=== PATIENT | male | born 1970 | race Caucasian/White ===

== ENCOUNTER 2016-09-05 21:58 | Emergency (ER) | payer MEDICARE ==
[~2016-09-05] VITALS: Ht 185.4 cm; Wt 99.8 kg
[2016-09-05 21:58] VITALS: BP 112/76
[~2016-09-05 21:58] MED LIST: BENICAR5 MG PO; DAYPRO600 M1 PO; DICLOFENAC POTA50 MG PO; GEODON60 MG PO; GLUCOPHAGE500 MG PO; INVOKANA300 M1 PO; LIPITOR40 MG PO; METFORMIN500 MG PO; MICRONASE5 MG PO; NEURONTIN100 MG PO; PREDNISONE10 MG PO; SEROQUEL XR400 MG PO; Synthroid,Lev200 MCG PO; TRAD5TAB1 PO; TRIGLIDE160 MG PO; ULTRAM50 MG PO
[2016-09-05 22:21] LABS: BASO # 0.1 10*3/uL (0.0-0.1); BASO % 1.3 % (0.0-1.0); EOS # 0.2 10*3/uL (0.0-0.4); EOS % 3.1 % (1.0-4.0); HEMATOCRIT 40.1 % (42.0-52.0); HEMOGLOBIN 13.9 g/dl (14.0-18.0); IG # 0.1 10*3/uL (0.0-0.1); LYMPH # 2.4 10*3/uL (1.3-4.4); MEAN CELL VOLUME 79.9 fl (80.0-94.0); MEAN CORPUSCULAR HGB 27.7 pg (27.0-31.0); MEAN CORPUSCULAR HGB CONC 34.7 g/dl (33.0-37.0); MEAN PLATELET VOLUME 10.4 fl (9.6-12.3); MONO # 0.5 10*3/uL (0.1-1.0); MONO % 6.8 % (3.0-9.0); NEUT # 3.8 10*3/uL (2.3-7.9); NEUT % 54.1 % (47.0-73.0); PLATELET COUNT AUTOMATED 343 10*3/uL (130-400); RED BLOOD COUNT 5.02 10*6/uL (4.50-5.90); RED CELL DISTRI WIDTH 13.6 % (0-14.5); WHITE BLOOD COUNT 7.1 10*3/uL (4.8-10.8)
[2016-09-05 22:38] LABS: ALBUMIN 3.4 gm/dl (3.1-4.5); ALKALINE PHOSPHATASE 105 U/L (45-117); BILIRUBIN, TOTAL 0.2 mg/dl (0.2-1.0); BUN 15 mg/dl (7-24); CARBON DIOXIDE 27 mmol/L (21-32); CHLORIDE 92 mmol/L (98-107); EST GLOM FILT AFRICAN AMERICAN > 60 ml/min; MAGNESIUM 2.5 mg/dL (1.5-2.1); POTASSIUM 4.4 mmol/L (3.5-5.1); SGOT/AST 8 IU/L (3-35); SGPT/ALT 22 U/L (12-78); SODIUM 130 mmol/L (136-145); TOTAL PROTEIN 7.1 gm/dL (6.4-8.2)
[2016-09-05 22:39] LABS: TROPONIN I < 0.015 ng/ml (<0.045)
[2016-09-05 22:40] LABS: GLUCOSE 687 mg/dL (65-99)
[2016-09-05 22:41] LABS: HEMOGLOBIN A1c 14.1 % (4.8-5.6)
[2016-09-05] MEDS ORDERED: LANOXIN250 MCG PO (23:17)
[2016-09-05] MEDS ORDERED: ALDACTONE25 MG PO (23:18)
[2016-09-05] MEDS ORDERED: ENTRESTO 97 MG1 EACH PO (23:18)
[2016-09-05] MEDS ORDERED: LASIX20 MG PO (23:18)
[2016-09-05] MEDS ORDERED: ASPIRIN81 M1 PO (23:19)
[2016-09-05] MEDS ORDERED: LISINOPRIL5 MG PO (23:19)
[2016-09-05] MEDS ORDERED: CORLANOR5 MG PO (23:20)
[2016-09-05] MEDS ORDERED: FENOFIBRATE160 MG PO (23:20)
[2016-09-05] MEDS ORDERED: BRILINTA90 M1 PO (23:21)
[2016-09-05] MEDS ORDERED: TOPROL XL200 MG PO (23:22)
[2016-09-05] MEDS ORDERED: ATORVASTATIN CA40 M1 PO (23:23)
[2016-09-06 00:10] LABS: BILIRUBIN NEGATIVE (NEGATIVE); BLOOD NEGATIVE (NEGATIVE); CLARITY CLEAR (CLEAR); COLOR YELLOW (YELLOW); GLUCOSE 3+ (NEGATIVE); KETONE NEGATIVE (NEGATIVE); LEUKO ESTERASE NEGATIVE (NEGATIVE); NITRITE NEGATIVE (NEGATIVE); PROTEIN NEGATIVE (NEGATIVE); SPECIFIC GRAVITY <= 1.005 (1.005-1.030); UROBILINOGEN 0.2 E.U./dl (0.2-1.0)
[2016-09-06 00:19] LABS: LA>2 REFLEX 2 HR DRAW NOW
[2016-09-06 00:21] LABS: URINE AMPHETAMINES < 1000 (1000ng/ml); URINE BARBITURATES < 200 (200ng/ml); URINE COCAINE < 300 (300ng/ml)
[2016-09-06 00:24] LABS: BACTERIA TRACE; EPITHELIAL CELLS 0-2; URINE REFLEX COMMENT NO (NO); WBC 0-2 wbc/hpf (0-5)
[2016-09-06 00:39] LABS: LA>2 RFLX FOLLOW UP AT 2 HRS 2.5 mmol/L (0.4-2.0)
[2016-09-06 02:29] LABS: LA>2 REFLEX 4 HR DRAW NOW
[2016-09-06 02:35] LABS: BUN 12 mg/dl (7-24); CARBON DIOXIDE 27 mmol/L (21-32); CHLORIDE 101 mmol/L (98-107); EST GLOM FILT AFRICAN AMERICAN > 60 ml/min; GLUCOSE 366 mg/dL (65-99); POTASSIUM 3.9 mmol/L (3.5-5.1); SODIUM 135 mmol/L (136-145)
== END 2016-09-06 03:38 | disposition home or self-care (01) ==
LOC: ED 21:58
PROVIDERS: Emergency Medicine Emergency Medical Services
DX: R73.9 Hyperglycemia, unspecified (principal); E11.8 Type 2 diabetes mellitus with unspecified complications; I99.8 Other disorder of circulatory system; Z79.82 Long term (current) use of aspirin; Z79.899 Other long term (current) drug therapy; Z88.0 Allergy status to penicillin; Z88.1 Allergy status to other antibiotic agents; Z88.6 Allergy status to analgesic agent

== ENCOUNTER 2016-09-25 16:26 | Inpatient (IN) | payer MEDICARE ==
[~2016-09-25] VITALS: Ht 180.3 cm; Wt 103.9 kg
--- NOTE | ~2016-09-25 | EKG ---
[place], [place] ELECTROCARDIOGRAM REPORT NAME: SIMA ALICIA UNIT #: [id number] ROOM: [facility] DOCTOR: GABE DONIS MD BIRTHDATE: [birth year] DOS: 09/25/2016 TIME: 17:50 p.m. FINDINGS: Sinus rhythm at rate of 81. Low voltage in limb leads. Anterolateral infarction, age undetermined. Abnormal electrocardiogram. GABE DONIS MD CM:EKGRPT:ELECTROCARDIOGRAM REPORT [id number] GABE DONIS MD
--- NOTE | ~2016-09-25 | WRIGHTHP ---
[place], [place] PATIENT HISTORY AND PHYSICAL EXAM NAME: SIMA ALICIA [facility] #: [id number] UNIT #: [id number] ROOM: 502 DOCTOR: CARLOS ALBERTO RON DO BIRTHDATE: [birth year] DOS: 09/25/2016 PRIMARY CARE PHYSICIAN: Dr. Yolette [place]. The patient was seen and evaluated with the resident on 09/25/2016. Please see the resident's note for further details. ASSESSMENT: 1. Uncontrolled diabetes mellitus type 2 and currently with severe hyperglycemia. 2. Noncompliance with insulin over the last 3 months. 3. Chronic systolic heart failure, currently compensated. Last echocardiogram in January of 2016 measured an ejection fraction of 30% to 35%. 4. Coronary artery disease with history of ST elevation myocardial infarction in October of 2015, where he had a cardiac catheterization and a stent placed. 5. Hypertension. 6. Hyperlipidemia. 7. Tobacco abuse. 8. Diabetic neuropathy. 9. Bipolar disorder. 10. Hypothyroidism. 11. History of automatic implantable cardioverter-defibrillator placement in February of 2016. 12. History of depression. PLAN: Stat labs will be obtained. EKG and chest x-ray will be ordered and insulin sliding scale will be ordered initially and this will be adjusted as needed based on the laboratory results. Continue other home medications. CARLOS ALBERTO RON DO CM:HISPHYS:PATIENT HISTORY AND PHYSICAL EXAMINATION 1720 1739 CARLOS ALBERTO RON DO 09/25/16 1740 interface
[~2016-09-25 16:26] MED LIST changes: +ALDACTONE25 MG PO; +ASPIRIN81 M1 PO; +ATORVASTATIN CA40 M1 PO; +BRILINTA90 M1 PO; +CORLANOR5 MG PO; +ENTRESTO 97 MG1 EACH PO; +FENOFIBRATE160 MG PO; +LANOXIN250 MCG PO; +LASIX20 MG PO; +LISINOPRIL5 MG PO; +TOPROL XL200 MG PO
[2016-09-25 17:04] VITALS: BP 111/64
[2016-09-25] MEDS ORDERED: BYDUREON2 M1 SQ (17:14)
[2016-09-25 17:15] LABS: BASO # 0.1 10*3/uL (0.0-0.1); BASO % 0.9 % (0.0-1.0); EOS # 0.2 10*3/uL (0.0-0.4); EOS % 2.2 % (1.0-4.0); HEMATOCRIT 43.1 % (42.0-52.0); HEMOGLOBIN 15.2 g/dl (14.0-18.0); IG # 0.1 10*3/uL (0.0-0.1); LYMPH # 2.7 10*3/uL (1.3-4.4); LYMPH % 29.4 % (27.0-41.0); MEAN CELL VOLUME 79.5 fl (80.0-94.0); MEAN CORPUSCULAR HGB CONC 35.3 g/dl (33.0-37.0); MEAN PLATELET VOLUME 10.5 fl (9.6-12.3); MONO # 0.4 10*3/uL (0.1-1.0); MONO % 4.7 % (3.0-9.0); NEUT # 5.7 10*3/uL (2.3-7.9); NEUT % 62.2 % (47.0-73.0); PLATELET COUNT AUTOMATED 324 10*3/uL (130-400); RED BLOOD COUNT 5.42 10*6/uL (4.50-5.90); RED CELL DISTRI WIDTH 13.5 % (0-14.5); WHITE BLOOD COUNT 9.1 10*3/uL (4.8-10.8)
[2016-09-25 17:24] LABS: INTERNATIONAL NORM RATIO 0.9 (2.0-3.5)
[2016-09-25 17:32] LABS: ALBUMIN 4.1 gm/dl (3.1-4.5); BILIRUBIN, TOTAL 0.6 mg/dl (0.2-1.0); BUN 20 mg/dl (7-24); CARBON DIOXIDE 26 mmol/L (21-32); CHLORIDE 91 mmol/L (98-107); CHOLESTEROL 192 mg/dL (<200); EST GLOM FILT AFRICAN AMERICAN > 60 ml/min; HDL CHOLESTEROL 20 mg/dl (40-60); MAGNESIUM 2.4 mg/dL (1.5-2.1); POTASSIUM 4.2 mmol/L (3.5-5.1); SGOT/AST 16 IU/L (3-35); SGPT/ALT 22 U/L (12-78); SODIUM 131 mmol/L (136-145); TOTAL PROTEIN 7.9 gm/dL (6.4-8.2)
[2016-09-25 17:33] LABS: ALKALINE PHOSPHATASE 116 U/L (45-117)
[2016-09-25 17:40] LABS: FREE T4 1.21 ng/dl (0.76-1.46)
[2016-09-25 17:46] LABS: GLUCOSE 488 mg/dL (65-99); TRIGLYCERIDES 1104 mg/dl (<150)
[2016-09-25 18:35] LABS: FOLIC ACID 16.8 ng/mL (>5.38)
[2016-09-25] MEDS ORDERED: NEURONTIN400 MG PO (18:44)
[2016-09-25] MEDS ORDERED: NEURONTIN800 MG PO (18:44)
[2016-09-25 20:00] VITALS: BP 103/61
[2016-09-26] VITALS: BP 87/57
[2016-09-26 07:13] LABS: BASO # 0.1 10*3/uL (0.0-0.1); BASO % 0.9 % (0.0-1.0); EOS # 0.3 10*3/uL (0.0-0.4); EOS % 3.4 % (1.0-4.0); HEMATOCRIT 38.7 % (42.0-52.0); HEMOGLOBIN 13.3 g/dl (14.0-18.0); IG # 0.1 10*3/uL (0.0-0.1); LYMPH # 3.6 10*3/uL (1.3-4.4); LYMPH % 46.9 % (27.0-41.0); MEAN CELL VOLUME 80.6 fl (80.0-94.0); MEAN CORPUSCULAR HGB 27.7 pg (27.0-31.0); MEAN CORPUSCULAR HGB CONC 34.4 g/dl (33.0-37.0); MEAN PLATELET VOLUME 10.8 fl (9.6-12.3); MONO # 0.5 10*3/uL (0.1-1.0); MONO % 6.2 % (3.0-9.0); NEUT # 3.2 10*3/uL (2.3-7.9); NEUT % 41.8 % (47.0-73.0); PLATELET COUNT AUTOMATED 294 10*3/uL (130-400); RED CELL DISTRI WIDTH 13.5 % (0-14.5); WHITE BLOOD COUNT 7.6 10*3/uL (4.8-10.8)
[2016-09-26 07:39] LABS: ALBUMIN 3.2 gm/dl (3.1-4.5); BUN 18 mg/dl (7-24); CARBON DIOXIDE 28 mmol/L (21-32); CHLORIDE 99 mmol/L (98-107); GLUCOSE 275 mg/dL (65-99); POTASSIUM 3.4 mmol/L (3.5-5.1); SODIUM 133 mmol/L (136-145)
[2016-09-26 07:42] LABS: ALKALINE PHOSPHATASE 94 U/L (45-117); BILIRUBIN, TOTAL 0.3 mg/dl (0.2-1.0); EST GLOM FILT AFRICAN AMERICAN > 60 ml/min; SGOT/AST 14 IU/L (3-35); SGPT/ALT 21 U/L (12-78); TOTAL PROTEIN 6.6 gm/dL (6.4-8.2)
[2016-09-26 08:00] VITALS: BP 94/60
[2016-09-26] MEDS ORDERED: VITAMIN D50000 I3 PO (11:17)
[2016-09-26] MEDS ORDERED: LEVEMIR10 ML SC (11:17)
[2016-09-26] MEDS ORDERED: HUMALOG100 U/ML SC ×2 (11:17)
[2016-09-26 12:00] VITALS: BP 122/76
== END 2016-09-26 13:00 | disposition home health service (06) | DRG 638 ==
LOC: 5E 16:26
PROVIDERS: Emergency Medicine; Internal Medicine Hospice and Palliative Medicine
DX: E11.65 Type 2 diabetes mellitus with hyperglycemia (principal); I50.22 Chronic systolic (congestive) heart failure; I11.0 Hypertensive heart disease with heart failure; E11.40 Type 2 diabetes mellitus with diabetic neuropathy, unspecified; E87.1 Hypo-osmolality and hyponatremia; F31.60 Bipolar disorder, current episode mixed, unspecified; E83.41 Hypermagnesemia; I25.10 Atherosclerotic heart disease of native coronary artery without angina pectoris; F17.200 Nicotine dependence, unspecified, uncomplicated; E03.9 Hypothyroidism, unspecified; E78.2 Mixed hyperlipidemia; G47.00 Insomnia, unspecified; E66.09 Other obesity due to excess calories; Z95.810 Presence of automatic (implantable) cardiac defibrillator; Z95.5 Presence of coronary angioplasty implant and graft; Z82.61 Family history of arthritis; Z88.0 Allergy status to penicillin; Z79.4 Long term (current) use of insulin; Z88.1 Allergy status to other antibiotic agents; Z88.6 Allergy status to analgesic agent; Z91.19 Patient's noncompliance with other medical treatment and regimen; Z88.8 Allergy status to other drugs, medicaments and biological substances; Z79.82 Long term (current) use of aspirin; Z79.899 Other long term (current) drug therapy; Z68.32 Body mass index [BMI] 32.0-32.9, adult

== ENCOUNTER 2016-11-10 23:09 | Emergency (ER) | payer MEDICARE ==
[~2016-11-10] VITALS: Ht 180.3 cm; Wt 126.6 kg
[2016-11-10 23:09] VITALS: BP 138/80
[~2016-11-10 23:09] MED LIST changes: +BYDUREON2 M1 SQ; +HUMALOG100 U/ML SC; +LEVEMIR10 ML SC; +NEURONTIN400 MG PO; +NEURONTIN800 MG PO; +VITAMIN D50000 I3 PO
[2016-11-11 00:02] LABS: BASO # 0.1 10*3/uL (0.0-0.1); BASO % 1.5 % (0.0-1.0); EOS # 0.3 10*3/uL (0.0-0.4); EOS % 3.7 % (1.0-4.0); HEMATOCRIT 39.1 % (42.0-52.0); HEMOGLOBIN 13.3 g/dl (14.0-18.0); LYMPH # 3.2 10*3/uL (1.3-4.4); LYMPH % 39.2 % (27.0-41.0); MEAN CORPUSCULAR HGB 27.5 pg (27.0-31.0); MEAN PLATELET VOLUME 9.8 fl (9.6-12.3); MONO # 0.6 10*3/uL (0.1-1.0); MONO % 7.4 % (3.0-9.0); NEUT # 3.9 10*3/uL (2.3-7.9); NEUT % 47.8 % (47.0-73.0); PLATELET COUNT AUTOMATED 351 10*3/uL (130-400); RED BLOOD COUNT 4.83 10*6/uL (4.50-5.90); RED CELL DISTRI WIDTH 13.2 % (0-14.5); WHITE BLOOD COUNT 8.1 10*3/uL (4.8-10.8)
[2016-11-11 00:06] LABS: BUN 20 mg/dl (7-24); CARBON DIOXIDE 28 mmol/L (21-32); CHLORIDE 100 mmol/L (98-107); EST GLOM FILT AFRICAN AMERICAN > 60 ml/min; GLUCOSE 144 mg/dL (65-99); POTASSIUM 4.1 mmol/L (3.5-5.1); SODIUM 136 mmol/L (136-145)
[2016-11-11 00:27] LABS: BILIRUBIN NEGATIVE (NEGATIVE); BLOOD NEGATIVE (NEGATIVE); CLARITY CLEAR (CLEAR); COLOR YELLOW (YELLOW); GLUCOSE TRACE (NEGATIVE); KETONE NEGATIVE (NEGATIVE); LEUKO ESTERASE NEGATIVE (NEGATIVE); NITRITE NEGATIVE (NEGATIVE); PH 5.5 (5.0-9.0); PROTEIN NEGATIVE (NEGATIVE); SPECIFIC GRAVITY <= 1.005 (1.005-1.030); UROBILINOGEN 0.2 E.U./dl (0.2-1.0)
[2016-11-11 00:49] LABS: EPITHELIAL CELLS 0-5; URINE REFLEX COMMENT NO (NO); WBC 0-2 wbc/hpf (0-5)
[2016-11-11 00:59] LABS: URINE AMPHETAMINES < 1000 (1000ng/ml); URINE BARBITURATES < 200 (200ng/ml); URINE COCAINE < 300 (300ng/ml)
== END 2016-11-11 00:48 | disposition home or self-care (01) ==
LOC: ED 23:09
PROVIDERS: Emergency Medicine Emergency Medical Services
DX: G89.29 Other chronic pain (principal); M79.601 Pain in right arm; M79.602 Pain in left arm; M25.561 Pain in right knee; M25.562 Pain in left knee; G62.9 Polyneuropathy, unspecified; R20.2 Paresthesia of skin; R20.0 Anesthesia of skin; I25.10 Atherosclerotic heart disease of native coronary artery without angina pectoris; E03.9 Hypothyroidism, unspecified; E78.2 Mixed hyperlipidemia; E11.9 Type 2 diabetes mellitus without complications; E11.65 Type 2 diabetes mellitus with hyperglycemia; F17.200 Nicotine dependence, unspecified, uncomplicated; Z79.4 Long term (current) use of insulin; I25.2 Old myocardial infarction; I50.22 Chronic systolic (congestive) heart failure; Z88.0 Allergy status to penicillin; Z88.1 Allergy status to other antibiotic agents; Z88.6 Allergy status to analgesic agent; Z79.899 Other long term (current) drug therapy; Z79.82 Long term (current) use of aspirin

== ENCOUNTER 2016-12-13 12:39 | Emergency (ER) | payer MEDICARE ==
[~2016-12-13] VITALS: Wt 108.9 kg
[2016-12-13 12:44] VITALS: BP 125/73
[2016-12-13] MEDS ORDERED: PREDNISONE10 MG PO (14:07)
== END 2016-12-13 14:14 ==
LOC: ED 12:39
DX: G89.4 Chronic pain syndrome (principal); G62.9 Polyneuropathy, unspecified; F17.200 Nicotine dependence, unspecified, uncomplicated; Z95.5 Presence of coronary angioplasty implant and graft; Z95.810 Presence of automatic (implantable) cardiac defibrillator; Z79.4 Long term (current) use of insulin; Z79.82 Long term (current) use of aspirin; Z79.899 Other long term (current) drug therapy; Z88.0 Allergy status to penicillin; Z88.1 Allergy status to other antibiotic agents; Z88.6 Allergy status to analgesic agent

== ENCOUNTER 2017-02-02 18:08 | Emergency (ER) | payer MEDICARE ==
[~2017-02-02] VITALS: Ht 180.3 cm; Wt 109.3 kg
[2017-02-02 18:14] VITALS: BP 138/80
[2017-02-02] MEDS ORDERED: PREDNISONE10 MG PO (18:37)
[2017-02-02] MEDS ORDERED: ZOFRAN4 MG PO (18:37)
== END 2017-02-02 20:00 | disposition home or self-care (01) ==
LOC: ED 18:08
DX: G89.29 Other chronic pain (principal); R52 Pain, unspecified; E11.42 Type 2 diabetes mellitus with diabetic polyneuropathy; R03.0 Elevated blood-pressure reading, without diagnosis of hypertension; I25.10 Atherosclerotic heart disease of native coronary artery without angina pectoris; I25.2 Old myocardial infarction; E03.9 Hypothyroidism, unspecified; E78.2 Mixed hyperlipidemia; E11.65 Type 2 diabetes mellitus with hyperglycemia; I50.22 Chronic systolic (congestive) heart failure; F17.200 Nicotine dependence, unspecified, uncomplicated; Z88.0 Allergy status to penicillin; Z79.4 Long term (current) use of insulin; Z88.1 Allergy status to other antibiotic agents; Z88.6 Allergy status to analgesic agent; Z79.82 Long term (current) use of aspirin; Z79.899 Other long term (current) drug therapy

== ENCOUNTER 2017-04-22 16:44 | Emergency (ER) | payer MEDICARE ==
[~2017-04-22] VITALS: Ht 180.3 cm; Wt 103.9 kg
[~2017-04-22 16:44] MED LIST changes: +ZOFRAN4 MG PO
[2017-04-22 17:24] VITALS: BP 139/89
== END 2017-04-22 18:39 | disposition home or self-care (01) ==
LOC: ED 16:44
DX: S93.401A Sprain of unspecified ligament of right ankle, initial encounter (principal); F17.200 Nicotine dependence, unspecified, uncomplicated; Z98.890 Other specified postprocedural states; Z90.89 Acquired absence of other organs; Z95.5 Presence of coronary angioplasty implant and graft; Z79.82 Long term (current) use of aspirin; Z79.899 Other long term (current) drug therapy; Z79.4 Long term (current) use of insulin; Z88.1 Allergy status to other antibiotic agents; Z88.5 Allergy status to narcotic agent; Z88.8 Allergy status to other drugs, medicaments and biological substances; Z88.0 Allergy status to penicillin; Z88.6 Allergy status to analgesic agent; X50.1XXA Overexertion from prolonged static or awkward postures, initial encounter; Y93.89 Activity, other specified; Y92.89 Other specified places as the place of occurrence of the external cause; Y99.9 Unspecified external cause status

== ENCOUNTER → 2017-06-22 | Outpatient (CLI) | payer MEDICARE ==
[2017-06-22 12:36] LABS: BILIRUBIN NEGATIVE (NEGATIVE); BLOOD NEGATIVE (NEGATIVE); CLARITY CLEAR (CLEAR); COLOR STRAW (YELLOW); GLUCOSE 3+ (NEGATIVE); KETONE NEGATIVE (NEGATIVE); LEUKO ESTERASE NEGATIVE (NEGATIVE); NITRITE NEGATIVE (NEGATIVE); PH 5.5 (5.0-9.0); SPECIFIC GRAVITY <= 1.005 (1.005-1.030); UROBILINOGEN 0.2 E.U./dl (0.2-1.0)
[2017-06-22 13:06] LABS: ALBUMIN 3.9 gm/dl (3.1-4.5); ALKALINE PHOSPHATASE 135 U/L (45-117); BILIRUBIN, DIRECT < 0.1 mg/dL (0.0-0.2); BUN 17 mg/dl (7-24); CHLORIDE 89 mmol/L (98-107); CHOLESTEROL 136 mg/dL (<200); CREATININE 1.12 mg/dL (0.70-1.30); FREE T4 1.26 ng/dl (0.76-1.46); HDL CHOLESTEROL 23 mg/dl (40-60); POTASSIUM 3.7 mmol/L (3.5-5.1); SGOT/AST 11 IU/L (3-35); SGPT/ALT 27 U/L (12-78); SODIUM 129 mmol/L (136-145); TOTAL PROTEIN 7.5 gm/dL (6.4-8.2); TRIGLYCERIDES 682 mg/dl (<150)
== END | disposition home or self-care (01) ==
LOC: LAB 11:49
PROVIDERS: Internal Medicine
DX: E11.65 Type 2 diabetes mellitus with hyperglycemia (principal); E03.9 Hypothyroidism, unspecified; E78.5 Hyperlipidemia, unspecified

== ENCOUNTER 2017-07-30 03:14 | Emergency (ER) | payer MEDICARE ==
[~2017-07-30] VITALS: Ht 177.8 cm; Wt 122.5 kg
--- NOTE | ~2017-07-30 | EKG ---
[place], [place] ELECTROCARDIOGRAM REPORT NAME: SIMA ALICIA UNIT #: [id number] ROOM: DOCTOR: KRISTINA DOWNING MD BIRTHDATE: [birth year] DOS: 07/30/2017 TIME: 0333 hours. Sinus tachycardia at 123 beats per minute. Probable old anterior wall myocardial infarction. Low voltage in limb leads. An abnormal ECG. No previous tracing is available for comparison. KRISTINA DOWNING MD CM:EKGRPT:ELECTROCARDIOGRAM REPORT 1733 2229 KRISTINA DOWNING MD
--- NOTE | ~2017-07-30 | EKG ---
[place], [place] ELECTROCARDIOGRAM REPORT NAME: SIMA ALICIA UNIT #: [id number] ROOM: DOCTOR: KRISTINA DOWNING MD BIRTHDATE: [birth year] DOS: 07/30/2017 TIME: 0434 hours. Sinus tachycardia at 123 beats per minute. Old anterior wall myocardial infarction. Low voltage in limb leads. An abnormal ECG. No significant change from an ECG done 1 hour earlier. KRISTINA DOWNING MD CM:EKGRPT:ELECTROCARDIOGRAM REPORT 1734 2232 KRISTINA DOWNING MD
[2017-07-30] MEDS ORDERED: PHARMASSURE FO0.8 MG PO (03:25)
[2017-07-30] MEDS ORDERED: TRILEPTAL300 MG PO (03:26)
[2017-07-30 03:53] LABS: BASO % 0.2 % (0.0-1.0); EOS % 0.3 % (1.0-4.0); HEMOGLOBIN 14.9 g/dl (14.0-18.0); LYMPH # 0.8 10*3/uL (1.3-4.4); LYMPH % 5.9 % (27.0-41.0); MEAN CELL VOLUME 77.1 fl (80.0-94.0); MEAN CORPUSCULAR HGB CONC 36.3 g/dl (33.0-37.0); MEAN PLATELET VOLUME 9.5 fl (9.6-12.3); MONO # 1.5 10*3/uL (0.1-1.0); NEUT # 10.9 10*3/uL (2.3-7.9); NEUT % 82.1 % (47.0-73.0); PLATELET COUNT AUTOMATED 374 10*3/uL (130-400); RED BLOOD COUNT 5.32 10*6/uL (4.50-5.90); RED CELL DISTRI WIDTH 13.1 % (0-14.5); WHITE BLOOD COUNT 13.3 10*3/uL (4.8-10.8)
[2017-07-30 04:10] LABS: ALKALINE PHOSPHATASE 130 U/L (45-117); BUN 6 mg/dl (7-24); SGOT/AST 77 IU/L (3-35); SGPT/ALT 38 U/L (12-78); TOTAL PROTEIN 7.1 gm/dL (6.4-8.2)
[2017-07-30 04:18] LABS: CHLORIDE 73 mmol/L (98-107); SODIUM 112 mmol/L (136-145)
[2017-07-30 04:36] LABS: ACT PARTIAL THROMBO TIME 27.1 SECONDS (20.8-31.5); INTERNATIONAL NORM RATIO 1.1 (2.0-3.5)
[2017-07-30 05:05] LABS: BILIRUBIN NEGATIVE (NEGATIVE); BLOOD TRACE-INTACT (NEGATIVE); CLARITY SL CLOUDY (CLEAR); COLOR YELLOW (YELLOW); GLUCOSE TRACE (NEGATIVE); KETONE 1+ (NEGATIVE); LEUKO ESTERASE NEGATIVE (NEGATIVE); NITRITE NEGATIVE (NEGATIVE); SPECIFIC GRAVITY 1.015 (1.005-1.030); UROBILINOGEN 0.2 E.U./dl (0.2-1.0)
[2017-07-30 05:13] LABS: URINE AMPHETAMINES < 1000 (1000ng/ml); URINE BARBITURATES < 200 (200ng/ml); URINE BENZODIAZEPINES < 200 (200ng/ml); URINE CANNABINOIDS (THC) < 50 (50ng/ml); URINE COCAINE < 300 (300ng/ml); URINE CREATININE RANDOM 95.2 mg/dL; URINE METHADONE < 300 (300ng/ml); URINE OPIATES < 300 (300ng/ml)
[2017-07-30 05:18] LABS: URINE PHENCYCLIDINE < 25 (25ng/ml)
[2017-07-30 07:09] VITALS: BP 113/65
== END 2017-07-30 07:30 | disposition short-term general hospital (02) ==
LOC: ED 03:14
PROVIDERS: Student in an Organized Health Care Education/Training Program
DX: E87.1 Hypo-osmolality and hyponatremia (principal); I21.4 Non-ST elevation (NSTEMI) myocardial infarction; I25.10 Atherosclerotic heart disease of native coronary artery without angina pectoris; E11.65 Type 2 diabetes mellitus with hyperglycemia; F31.9 Bipolar disorder, unspecified; I50.9 Heart failure, unspecified; G47.00 Insomnia, unspecified; E83.41 Hypermagnesemia; E03.9 Hypothyroidism, unspecified; Z88.0 Allergy status to penicillin; Z88.1 Allergy status to other antibiotic agents; Z91.041 Radiographic dye allergy status; Z88.5 Allergy status to narcotic agent; Z79.899 Other long term (current) drug therapy; Z79.82 Long term (current) use of aspirin; Z79.4 Long term (current) use of insulin; Z90.89 Acquired absence of other organs

== ENCOUNTER → 2017-10-09 | Outpatient (CLI) | payer MEDICARE ==
[~2017-10-09] MED LIST changes: +PHARMASSURE FO0.8 MG PO; +TRILEPTAL300 MG PO
[2017-10-09 11:51] LABS: ALBUMIN 4.4 gm/dl (3.1-4.5); BUN 15 mg/dl (7-24); CHLORIDE 86 mmol/L (98-107); POTASSIUM 4.3 mmol/L (3.5-5.1); SGOT/AST 18 IU/L (3-35); SGPT/ALT 42 U/L (12-78); SODIUM 124 mmol/L (136-145); TOTAL PROTEIN 7.7 gm/dL (6.4-8.2)
[2017-10-09 11:52] LABS: ALKALINE PHOSPHATASE 126 U/L (45-117)
[2017-10-12 15:08] LABS: METHYLMALONIC ACID 706961 143 nmol/L (0-378)
== END | disposition home or self-care (01) ==
LOC: LAB 10:53
PROVIDERS: Psychiatry & Neurology Neurology
DX: R20.9 Unspecified disturbances of skin sensation (principal); E87.1 Hypo-osmolality and hyponatremia

== ENCOUNTER → 2017-12-16 | Outpatient (CLI) | payer MEDICARE | END | disposition home or self-care (01) | LOC: RAD 10:15 | DX: M47.896 Other spondylosis, lumbar region (principal); M54.2 Cervicalgia; R20.0 Anesthesia of skin; S32.008A Other fracture of unspecified lumbar vertebra, initial encounter for closed fracture; X58.XXXA Exposure to other specified factors, initial encounter; Y93.89 Activity, other specified; Y92.89 Other specified places as the place of occurrence of the external cause; Y99.8 Other external cause status ==

== ENCOUNTER 2018-04-05 19:00 | Inpatient (IN) | payer MEDICARE ==
[2018-04-05] VITALS (11 sets, daily range): BP systolic 64–101; BP diastolic 33–56
[~2018-04-05] VITALS: Ht 180.3 cm; Wt 100.4 kg
--- NOTE | ~2018-04-05 | PR ---
[place], [place] PROGRESS NOTE NAME: SIMA ALICIA [facility] #: [id number] UNIT #: [id number] ROOM: 415 DOCTOR: GABE DONIS MD BIRTHDATE: [birth year] DOS: 04/07/2018 CARDIOLOGY PROGRESS NOTE SUBJECTIVE: The patient was seen at his bedside today on 04/07/2018 for followup of his ischemic cardiomyopathy and hospitalization for a fall. The patient states that his legs just got weak and he did fall. His ICD was interrogated on 04/06/2018. The device was functioning normally and no events were recorded. Leads, etc. all looked good. The patient's diuretics were decreased and he feels well today. Denies orthopnea, PND or dyspnea. PHYSICAL EXAMINATION: VITAL SIGNS: Today, his pulse is 82 and regular, blood pressure is 126/82. He is afebrile. NECK: Supple. He has no jugular distention. He does have mild hepatojugular reflux. Carotids are full. LUNGS: Respirations are unlabored. CHEST: Clear. HEART: Has a regular rhythm. He has a fourth heart sound. Did not hear a third heart sound. ABDOMEN: Soft and normally active. EXTREMITIES: Showed trace edema at the ankles bilaterally. LABORATORY DATA: Hemoglobin is 14 with white count 6500. Sodium is 134, potassium 3.8, BUN 5, creatinine 0.67. Urine drug screen was entirely normal. IMPRESSION: 1. History of ischemic cardiomyopathy with ejection fraction 30%-35%. 2. Status post implantable cardioverter-defibrillator for primary prevention of sudden cardiac . 3. Diabetes mellitus type 2. 4. History of fall, prompting current admission, likely due to dehydration. PLAN: The patient was on a larger dose of spironolactone as well as furosemide 20 mg t.i.d. We will resume his furosemide at 20 mg daily and continue spironolactone at 12.5 mg per day. He will continue metoprolol 100 mg twice a day, digoxin 250 mcg daily along with his aspirin and Brilinta. I will have him out of bed today. We will check orthostatic vital signs. If electrolytes look good and his vital signs are stable, he probably could be discharged within the next 24 hours. [facility] and I thank the patient's hospitalist physicians for asking our advice regarding his care. [place], [place] PROGRESS NOTE NAME: SIMA ALICIA UNIT #: [id number] ROOM: 415 DOCTOR: GABE DONIS MD BIRTHDATE: [birth year] GABE DONIS MD CM:PNTRANS 1132 GABE DONIS MD 04/08/18 003 interface
--- NOTE | ~2018-04-05 | EKG ---
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
[2018-04-05 20:46] LABS: BASO # 0.1 10*3/uL (0.0-0.1); EOS # 0.4 10*3/uL (0.0-0.4); EOS % 3.5 % (1.0-4.0); HEMATOCRIT 39.8 % (42.0-52.0); HEMOGLOBIN 14.4 g/dl (14.0-18.0); LYMPH # 2.6 10*3/uL (1.3-4.4); LYMPH % 23.8 % (27.0-41.0); MEAN CELL VOLUME 79.6 fl (80.0-94.0); MEAN CORPUSCULAR HGB 28.8 pg (27.0-31.0); MEAN CORPUSCULAR HGB CONC 36.2 g/dl (33.0-37.0); MEAN PLATELET VOLUME 10.1 fl (9.6-12.3); MONO # 0.8 10*3/uL (0.1-1.0); NEUT # 7.1 10*3/uL (2.3-7.9); NEUT % 64.3 % (47.0-73.0); PLATELET COUNT AUTOMATED 263 10*3/uL (130-400)
[2018-04-05 21:03] LABS: ALBUMIN 3.1 gm/dl (3.1-4.5); ALKALINE PHOSPHATASE 151 U/L (45-117); BUN 7 mg/dl (7-24); CHLORIDE 91 mmol/L (98-107); CREATININE 1.11 mg/dL (0.70-1.30); LIPASE 184 U/L (73-393); POTASSIUM 3.7 mmol/L (3.5-5.1); SGOT/AST 10 IU/L (3-35); SGPT/ALT 19 U/L (12-78); SODIUM 127 mmol/L (136-145); TOTAL PROTEIN 6.5 gm/dL (6.4-8.2); TROPONIN I 0.016 ng/ml (<0.045)
[2018-04-05 22:52] LABS: ACETAMINOPHEN (TYLENOL) < 5.0 ug/ml (10-30); ETHYL ALCOHOL < 3.0 mg/dl (<3)
[2018-04-06] VITALS (13 sets, daily range): BP systolic 88–121; BP diastolic 44–81
[2018-04-06 06:14] LABS: BASO # 0.1 10*3/uL (0.0-0.1); BASO % 0.9 % (0.0-1.0); EOS # 0.4 10*3/uL (0.0-0.4); EOS % 4.2 % (1.0-4.0); HEMATOCRIT 41.2 % (42.0-52.0); HEMOGLOBIN 14.2 g/dl (14.0-18.0); LYMPH # 1.9 10*3/uL (1.3-4.4); LYMPH % 21.9 % (27.0-41.0); MEAN CELL VOLUME 80.9 fl (80.0-94.0); MEAN CORPUSCULAR HGB 27.9 pg (27.0-31.0); MEAN CORPUSCULAR HGB CONC 34.5 g/dl (33.0-37.0); MEAN PLATELET VOLUME 10.3 fl (9.6-12.3); MONO # 0.6 10*3/uL (0.1-1.0); MONO % 7.1 % (3.0-9.0); NEUT # 5.6 10*3/uL (2.3-7.9); NEUT % 65.4 % (47.0-73.0); PLATELET COUNT AUTOMATED 258 10*3/uL (130-400); RED BLOOD COUNT 5.09 10*6/uL (4.50-5.90); RED CELL DISTRI WIDTH 13.1 % (0-14.5); WHITE BLOOD COUNT 8.5 10*3/uL (4.8-10.8)
[2018-04-06 06:31] LABS: BUN 8 mg/dl (7-24); CHLORIDE 99 mmol/L (98-107); FREE T4 1.32 ng/dl (0.76-1.46); HDL CHOLESTEROL 19 mg/dl (40-60); PHOSPHOROUS 3.6 mg/dL (2.5-4.9); POTASSIUM 3.8 mmol/L (3.5-5.1); SODIUM 135 mmol/L (136-145); TRIGLYCERIDES 397 mg/dl (<150); VLDL CHOLESTEROL 79 mg/dL (6-40)
[2018-04-06 06:40] LABS: URINE AMPHETAMINES < 1000 (1000ng/ml); URINE BARBITURATES < 200 (200ng/ml); URINE BENZODIAZEPINES < 200 (200ng/ml); URINE CANNABINOIDS (THC) < 50 (50ng/ml); URINE COCAINE < 300 (300ng/ml); URINE METHADONE < 300 (300ng/ml); URINE OPIATES < 300 (300ng/ml)
[2018-04-06 06:44] LABS: URINE PHENCYCLIDINE < 25 (25ng/ml)
[2018-04-06 06:56] LABS: CHOLESTEROL 98 mg/dL (<200); LDL CHOLESTEROL 0 mg/dL (9-159)
[2018-04-07] VITALS (12 sets, daily range): BP systolic 108–134; BP diastolic 58–87
[2018-04-07 05:55] LABS: BUN 5 mg/dl (7-24); CHLORIDE 101 mmol/L (98-107); CREATININE 0.67 mg/dL (0.70-1.30); POTASSIUM 3.8 mmol/L (3.5-5.1); SODIUM 134 mmol/L (136-145)
[2018-04-07 06:10] LABS: BASO # 0.1 10*3/uL (0.0-0.1); BASO % 1.7 % (0.0-1.0); EOS # 0.3 10*3/uL (0.0-0.4); EOS % 5.2 % (1.0-4.0); HEMATOCRIT 40.6 % (42.0-52.0); LYMPH # 1.5 10*3/uL (1.3-4.4); LYMPH % 23.3 % (27.0-41.0); MEAN CORPUSCULAR HGB 27.9 pg (27.0-31.0); MEAN CORPUSCULAR HGB CONC 34.5 g/dl (33.0-37.0); MEAN PLATELET VOLUME 10.3 fl (9.6-12.3); MONO # 0.4 10*3/uL (0.1-1.0); MONO % 6.7 % (3.0-9.0); NEUT # 4.1 10*3/uL (2.3-7.9); NEUT % 62.8 % (47.0-73.0); PLATELET COUNT AUTOMATED 247 10*3/uL (130-400); RED BLOOD COUNT 5.01 10*6/uL (4.50-5.90); RED CELL DISTRI WIDTH 13.1 % (0-14.5); WHITE BLOOD COUNT 6.5 10*3/uL (4.8-10.8)
[2018-04-08] VITALS: BP 123/80
[2018-04-08 06:00] VITALS: BP 138/89
[2018-04-08 07:26] LABS: BUN 5 mg/dl (7-24); CHLORIDE 100 mmol/L (98-107); CREATININE 0.63 mg/dL (0.70-1.30); POTASSIUM 3.6 mmol/L (3.5-5.1); SODIUM 135 mmol/L (136-145)
[2018-04-08] MEDS ORDERED: METOPROLOL SUC100 M1 PO (10:16)
[2018-04-08] MEDS ORDERED: FUROSEMIDE40 MG PO (10:16)
== END 2018-04-08 11:34 | disposition home or self-care (01) | DRG 315 ==
LOC: ED 19:00 → 4E 22:26 → EDHOLD 22:26 → 4E 22:56
PROVIDERS: Internal Medicine; Internal Medicine Cardiovascular Disease; Nurse Practitioner Family; Student in an Organized Health Care Education/Training Program
PROC: 0HBNXZZ Excision of Left Foot Skin, External Approach (ICD-10-PCS; principal; 2018-04-07)
DX: I95.9 Hypotension, unspecified (principal); E87.1 Hypo-osmolality and hyponatremia; I50.22 Chronic systolic (congestive) heart failure; F31.60 Bipolar disorder, current episode mixed, unspecified; E87.2 Acidosis; S93.402A Sprain of unspecified ligament of left ankle, initial encounter; E86.9 Volume depletion, unspecified; W19.XXXA Unspecified fall, initial encounter; S91.119A Laceration without foreign body of unspecified toe without damage to nail, initial encounter; E86.0 Dehydration; E11.65 Type 2 diabetes mellitus with hyperglycemia; E03.9 Hypothyroidism, unspecified; I25.10 Atherosclerotic heart disease of native coronary artery without angina pectoris; E78.2 Mixed hyperlipidemia; G47.00 Insomnia, unspecified; G89.29 Other chronic pain; F17.210 Nicotine dependence, cigarettes, uncomplicated; E11.42 Type 2 diabetes mellitus with diabetic polyneuropathy; E83.41 Hypermagnesemia; I25.5 Ischemic cardiomyopathy; Z95.810 Presence of automatic (implantable) cardiac defibrillator; Z82.61 Family history of arthritis; Z88.0 Allergy status to penicillin; Z88.8 Allergy status to other drugs, medicaments and biological substances; Z88.6 Allergy status to analgesic agent; Z88.1 Allergy status to other antibiotic agents; Z71.6 Tobacco abuse counseling; Z91.041 Radiographic dye allergy status; Z79.899 Other long term (current) drug therapy; Z95.5 Presence of coronary angioplasty implant and graft; Y93.9 Activity, unspecified; Y92.89 Other specified places as the place of occurrence of the external cause; Y99.8 Other external cause status

== ENCOUNTER → 2018-07-12 | Outpatient (CLI) | payer MEDICARE ==
[~2018-07-12] MED LIST changes: +FUROSEMIDE40 MG PO; +METOPROLOL SUC100 M1 PO
[2018-07-12 16:36] LABS: ALBUMIN 3.9 gm/dl (3.1-4.5); ALKALINE PHOSPHATASE 149 U/L (45-117); BILIRUBIN, DIRECT < 0.1 mg/dL (0.0-0.2); BUN 8 mg/dl (7-24); CREATININE 1.09 mg/dL (0.70-1.30); SGOT/AST 11 IU/L (3-35); SGPT/ALT 31 U/L (12-78); TOTAL PROTEIN 7.9 gm/dL (6.4-8.2)
== END | disposition home or self-care (01) ==
LOC: LAB 15:49
PROVIDERS: Nurse Practitioner Gerontology
DX: Z79.899 Other long term (current) drug therapy (principal)

== ENCOUNTER 2018-11-23 11:40 | Emergency (ER) | payer MEDICARE ==
--- NOTE | ~2018-11-23 | EKG ---
[place], [place] ELECTROCARDIOGRAM REPORT NAME: SIMA ALICIA UNIT #: [id number] ROOM: DOCTOR: EPIPHANY DRAFT REPORT BIRTHDATE: [birth year] [facility] Test Date: 2018-11-23 Test Time: 12:10:00 Pat Name: SIMA ALICIA Department: ER-7 TRANSF. 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
[2018-11-23 12:10] LABS: BASO # 0.1 10*3/uL (0.0-0.1); EOS # 0.3 10*3/uL (0.0-0.4); EOS % 2.7 % (1.0-4.0); HEMATOCRIT 47.8 % (42.0-52.0); HEMOGLOBIN 16.6 g/dl (14.0-18.0); LYMPH % 18.8 % (27.0-41.0); MEAN CELL VOLUME 83.4 fl (80.0-94.0); MEAN CORPUSCULAR HGB CONC 34.7 g/dl (33.0-37.0); MEAN PLATELET VOLUME 10.1 fl (9.6-12.3); MONO # 0.7 10*3/uL (0.1-1.0); MONO % 6.3 % (3.0-9.0); NEUT # 7.4 10*3/uL (2.3-7.9); NEUT % 70.9 % (47.0-73.0); PLATELET COUNT AUTOMATED 277 10*3/uL (130-400); RED BLOOD COUNT 5.73 10*6/uL (4.50-5.90); RED CELL DISTRI WIDTH 12.5 % (0-14.5); WHITE BLOOD COUNT 10.4 10*3/uL (4.8-10.8)
[2018-11-23 12:25] LABS: ACT PARTIAL THROMBO TIME 24.2 SECONDS (20.0-32.1); INTERNATIONAL NORM RATIO 0.9 (2.0-3.5)
[2018-11-23 12:27] LABS: ALBUMIN 3.6 gm/dl (3.1-4.5); ALKALINE PHOSPHATASE 134 U/L (45-117); BUN 7 mg/dl (7-24); CHLORIDE 97 mmol/L (98-107); CREATININE 0.87 mg/dL (0.70-1.30); SGOT/AST 50 IU/L (3-35); SGPT/ALT 35 U/L (12-78); SODIUM 133 mmol/L (136-145); TOTAL PROTEIN 7.2 gm/dL (6.4-8.2); TROPONIN I < 0.015 ng/ml (<0.045)
[2018-11-23 16:30] VITALS: BP 109/73
== END 2018-11-23 17:11 | disposition short-term general hospital (02) ==
LOC: ED 11:40
PROVIDERS: Emergency Medicine
DX: I74.3 Embolism and thrombosis of arteries of the lower extremities (principal); E11.42 Type 2 diabetes mellitus with diabetic polyneuropathy; G89.29 Other chronic pain; I25.10 Atherosclerotic heart disease of native coronary artery without angina pectoris; I25.2 Old myocardial infarction; E03.9 Hypothyroidism, unspecified; I50.32 Chronic diastolic (congestive) heart failure; E78.2 Mixed hyperlipidemia; F17.200 Nicotine dependence, unspecified, uncomplicated; Z88.6 Allergy status to analgesic agent; Z88.0 Allergy status to penicillin; Z88.1 Allergy status to other antibiotic agents; Z91.041 Radiographic dye allergy status; Z79.899 Other long term (current) drug therapy; Z79.4 Long term (current) use of insulin

== ENCOUNTER → 2019-01-06 | Outpatient (CLI) | payer MEDICARE ==
[2019-01-06 13:39] LABS: INTERNATIONAL NORM RATIO 1.2 (2.0-3.5)
== END | disposition home or self-care (01) ==
LOC: LAB 12:37
PROVIDERS: Internal Medicine Cardiovascular Disease
DX: I82.90 Acute embolism and thrombosis of unspecified vein (principal); I50.23 Acute on chronic systolic (congestive) heart failure

== ENCOUNTER 2019-02-08 20:20 | Emergency (ER) | payer MEDICARE ==
[~2019-02-08] VITALS: Ht 180.3 cm; Wt 95.3 kg
[2019-02-08 20:29] VITALS: BP 102/62
[2019-02-08 20:56] LABS: BASO # 0.1 10*3/uL (0.0-0.1); BASO % 1.3 % (0.0-1.0); EOS # 0.3 10*3/uL (0.0-0.4); EOS % 3.8 % (1.0-4.0); HEMATOCRIT 46.4 % (42.0-52.0); HEMOGLOBIN 16.3 g/dl (14.0-18.0); LYMPH # 2.3 10*3/uL (1.3-4.4); LYMPH % 27.8 % (27.0-41.0); MEAN CELL VOLUME 81.1 fl (80.0-94.0); MEAN CORPUSCULAR HGB 28.5 pg (27.0-31.0); MEAN CORPUSCULAR HGB CONC 35.1 g/dl (33.0-37.0); MEAN PLATELET VOLUME 10.2 fl (9.6-12.3); MONO # 0.5 10*3/uL (0.1-1.0); MONO % 6.2 % (3.0-9.0); NEUT # 4.9 10*3/uL (2.3-7.9); NEUT % 60.4 % (47.0-73.0); PLATELET COUNT AUTOMATED 314 10*3/uL (130-400); RED BLOOD COUNT 5.72 10*6/uL (4.50-5.90); RED CELL DISTRI WIDTH 12.8 % (0-14.5); WHITE BLOOD COUNT 8.2 10*3/uL (4.8-10.8)
[2019-02-08 21:12] LABS: BUN 10 mg/dl (7-24); CHLORIDE 89 mmol/L (98-107); CREATININE 1.25 mg/dL (0.70-1.30); POTASSIUM 4.5 mmol/L (3.5-5.1); SODIUM 125 mmol/L (136-145)
[2019-02-08] MEDS ORDERED: ULTRAM50 MG PO (23:05)
== END 2019-02-08 23:12 | disposition home or self-care (01) ==
LOC: ED 20:20
PROVIDERS: Emergency Medicine Emergency Medical Services
DX: S86.911A Strain of unspecified muscle(s) and tendon(s) at lower leg level, right leg, initial encounter (principal); S96.911A Strain of unspecified muscle and tendon at ankle and foot level, right foot, initial encounter; E11.65 Type 2 diabetes mellitus with hyperglycemia; E11.42 Type 2 diabetes mellitus with diabetic polyneuropathy; I25.10 Atherosclerotic heart disease of native coronary artery without angina pectoris; I25.2 Old myocardial infarction; E03.9 Hypothyroidism, unspecified; G89.29 Other chronic pain; I11.0 Hypertensive heart disease with heart failure; I50.22 Chronic systolic (congestive) heart failure; E78.2 Mixed hyperlipidemia; E66.9 Obesity, unspecified; F17.200 Nicotine dependence, unspecified, uncomplicated; Z88.6 Allergy status to analgesic agent; Z88.0 Allergy status to penicillin; Z88.1 Allergy status to other antibiotic agents; Z91.041 Radiographic dye allergy status; Z88.8 Allergy status to other drugs, medicaments and biological substances; Z79.899 Other long term (current) drug therapy; Z79.4 Long term (current) use of insulin; X50.1XXA Overexertion from prolonged static or awkward postures, initial encounter; Y93.89 Activity, other specified; Y92.098 Other place in other non-institutional residence as the place of occurrence of the external cause; Y99.8 Other external cause status

== ENCOUNTER 2019-07-14 17:57 | Emergency (ER) | payer MEDICARE ==
[~2019-07-14] VITALS: Wt 103.9 kg
[2019-07-14 18:07] VITALS: BP 101/49
[2019-07-14 18:43] LABS: BASO # 0.1 10*3/uL (0.0-0.1); EOS # 0.3 10*3/uL (0.0-0.4); EOS % 3.1 % (1.0-4.0); HEMATOCRIT 48.4 % (42.0-52.0); HEMOGLOBIN 15.9 g/dl (14.0-18.0); LYMPH # 3.2 10*3/uL (1.3-4.4); LYMPH % 32.4 % (27.0-41.0); MEAN CELL VOLUME 86.1 fl (80.0-94.0); MEAN CORPUSCULAR HGB 28.3 pg (27.0-31.0); MEAN CORPUSCULAR HGB CONC 32.9 g/dl (33.0-37.0); MEAN PLATELET VOLUME 10.2 fl (9.6-12.3); MONO # 0.7 10*3/uL (0.1-1.0); NEUT # 5.5 10*3/uL (2.3-7.9); NEUT % 56.1 % (47.0-73.0); PLATELET COUNT AUTOMATED 387 10*3/uL (130-400); RED BLOOD COUNT 5.62 10*6/uL (4.50-5.90); RED CELL DISTRI WIDTH 13.5 % (0-14.5); WHITE BLOOD COUNT 9.7 10*3/uL (4.8-10.8)
[2019-07-14 18:54] LABS: ACT PARTIAL THROMBO TIME 29.6 SECONDS (20.0-32.1); INTERNATIONAL NORM RATIO 1.3 (2.0-3.5)
[2019-07-14 18:58] LABS: ALBUMIN 3.9 gm/dl (3.1-4.5); ALKALINE PHOSPHATASE 64 U/L (45-117); BUN 18 mg/dl (7-24); CHLORIDE 104 mmol/L (98-107); LIPASE 318 U/L (73-393); POTASSIUM 4.1 mmol/L (3.5-5.1); SGOT/AST 12 IU/L (3-35); SGPT/ALT 24 U/L (12-78); SODIUM 136 mmol/L (136-145); TOTAL PROTEIN 7.5 gm/dL (6.4-8.2); TROPONIN I < 0.015 ng/ml (<0.045)
== END 2019-07-14 23:58 | disposition short-term general hospital (02) ==
LOC: ED 17:57
PROVIDERS: Emergency Medicine
DX: R51 Headache (principal); R07.9 Chest pain, unspecified; R53.1 Weakness; I25.10 Atherosclerotic heart disease of native coronary artery without angina pectoris; G89.29 Other chronic pain; E11.9 Type 2 diabetes mellitus without complications; I25.2 Old myocardial infarction; I11.0 Hypertensive heart disease with heart failure; I50.22 Chronic systolic (congestive) heart failure; E03.9 Hypothyroidism, unspecified; E78.2 Mixed hyperlipidemia; E66.9 Obesity, unspecified; E11.42 Type 2 diabetes mellitus with diabetic polyneuropathy; Z95.0 Presence of cardiac pacemaker; J45.909 Unspecified asthma, uncomplicated; E11.51 Type 2 diabetes mellitus with diabetic peripheral angiopathy without gangrene; F17.200 Nicotine dependence, unspecified, uncomplicated; Z88.6 Allergy status to analgesic agent; Z88.0 Allergy status to penicillin; Z88.1 Allergy status to other antibiotic agents; Z91.041 Radiographic dye allergy status; Z79.899 Other long term (current) drug therapy; Z79.4 Long term (current) use of insulin; Z98.61 Coronary angioplasty status; Z98.890 Other specified postprocedural states

== ENCOUNTER → 2019-07-30 | Outpatient (CLI) | payer MEDICARE | END | disposition home or self-care (01) | LOC: CARD 15:00 | DX: I25.5 Ischemic cardiomyopathy (principal); R07.2 Precordial pain ==

== ENCOUNTER 2019-08-23 17:52 | Emergency (ER) | payer MEDICARE ==
[~2019-08-23] VITALS: Ht 180.3 cm; Wt 99.3 kg
[2019-08-23 18:09] VITALS: BP 109/67
[2019-08-23 18:22] LABS: BASO # 0.1 10*3/uL (0.0-0.1); EOS # 0.4 10*3/uL (0.0-0.4); EOS % 3.7 % (1.0-4.0); HEMOGLOBIN 15.5 g/dl (14.0-18.0); LYMPH # 2.8 10*3/uL (1.3-4.4); LYMPH % 23.2 % (27.0-41.0); MEAN CELL VOLUME 85.5 fl (80.0-94.0); MEAN CORPUSCULAR HGB 28.2 pg (27.0-31.0); MEAN PLATELET VOLUME 9.4 fl (9.6-12.3); MONO # 0.8 10*3/uL (0.1-1.0); MONO % 6.3 % (3.0-9.0); NEUT # 7.8 10*3/uL (2.3-7.9); NEUT % 65.2 % (47.0-73.0); PLATELET COUNT AUTOMATED 380 10*3/uL (130-400); RED CELL DISTRI WIDTH 13.4 % (0-14.5); WHITE BLOOD COUNT 11.9 10*3/uL (4.8-10.8)
[2019-08-23 18:34] LABS: ACT PARTIAL THROMBO TIME 29.9 SECONDS (20.0-32.1); INTERNATIONAL NORM RATIO 1.6 (2.0-3.5)
[2019-08-23 18:38] LABS: ALBUMIN 3.6 gm/dl (3.1-4.5); ALKALINE PHOSPHATASE 47 U/L (45-117); BUN 11 mg/dl (7-24); CHLORIDE 104 mmol/L (98-107); CREATININE 1.13 mg/dL (0.70-1.30); POTASSIUM 4.2 mmol/L (3.5-5.1); SGOT/AST 13 IU/L (3-35); SGPT/ALT 28 U/L (12-78); SODIUM 137 mmol/L (136-145); TOTAL PROTEIN 7.2 gm/dL (6.4-8.2)
[2019-08-23 18:44] LABS: TROPONIN I < 0.015 ng/ml (<0.045)
== END 2019-08-23 19:55 | disposition left against medical advice (07) ==
LOC: ED 17:52
PROVIDERS: Nurse Practitioner Family
DX: I63.9 Cerebral infarction, unspecified (principal); E11.9 Type 2 diabetes mellitus without complications; E78.5 Hyperlipidemia, unspecified; E03.9 Hypothyroidism, unspecified; I25.10 Atherosclerotic heart disease of native coronary artery without angina pectoris; J45.909 Unspecified asthma, uncomplicated; I11.0 Hypertensive heart disease with heart failure; I50.9 Heart failure, unspecified; F17.200 Nicotine dependence, unspecified, uncomplicated; Z88.8 Allergy status to other drugs, medicaments and biological substances; Z88.1 Allergy status to other antibiotic agents; Z91.041 Radiographic dye allergy status; Z79.899 Other long term (current) drug therapy

== ENCOUNTER 2019-09-01 06:53 | Emergency (ER) | payer MEDICARE ==
[~2019-09-01] VITALS: Ht 180.3 cm; Wt 99.3 kg
[2019-09-01 07:11] LABS: BASO # 0.1 10*3/uL (0.0-0.1); BASO % 1.4 % (0.0-1.0); EOS # 0.4 10*3/uL (0.0-0.4); EOS % 5.2 % (1.0-4.0); HEMATOCRIT 45.5 % (42.0-52.0); HEMOGLOBIN 15.2 g/dl (14.0-18.0); LYMPH # 2.6 10*3/uL (1.3-4.4); LYMPH % 36.5 % (27.0-41.0); MEAN CELL VOLUME 85.2 fl (80.0-94.0); MEAN CORPUSCULAR HGB 28.5 pg (27.0-31.0); MEAN CORPUSCULAR HGB CONC 33.4 g/dl (33.0-37.0); MEAN PLATELET VOLUME 9.9 fl (9.6-12.3); MONO # 0.6 10*3/uL (0.1-1.0); MONO % 7.7 % (3.0-9.0); NEUT # 3.5 10*3/uL (2.3-7.9); NEUT % 48.9 % (47.0-73.0); PLATELET COUNT AUTOMATED 402 10*3/uL (130-400); RED BLOOD COUNT 5.34 10*6/uL (4.50-5.90); RED CELL DISTRI WIDTH 13.2 % (0-14.5); WHITE BLOOD COUNT 7.1 10*3/uL (4.8-10.8)
[2019-09-01 07:25] LABS: ACT PARTIAL THROMBO TIME 39.3 SECONDS (20.0-32.1); INTERNATIONAL NORM RATIO 2.9 (2.0-3.5)
[2019-09-01 07:27] LABS: ALBUMIN 3.4 gm/dl (3.1-4.5); ALKALINE PHOSPHATASE 48 U/L (45-117); BUN 13 mg/dl (7-24); CHLORIDE 105 mmol/L (98-107); CREATININE 1.25 mg/dL (0.70-1.30); SGOT/AST 16 IU/L (3-35); SGPT/ALT 29 U/L (12-78); SODIUM 138 mmol/L (136-145); TOTAL PROTEIN 6.8 gm/dL (6.4-8.2)
[2019-09-01 07:28] LABS: TROPONIN I < 0.015 ng/ml (<0.045)
[2019-09-01 07:29] LABS: POTASSIUM 4.2 mmol/L (3.5-5.1)
[2019-09-01 16:15] VITALS: BP 113/62
== END 2019-09-01 16:51 | disposition short-term general hospital (02) ==
LOC: ED 06:53
PROVIDERS: Emergency Medicine
DX: I63.9 Cerebral infarction, unspecified (principal); I11.0 Hypertensive heart disease with heart failure; I50.9 Heart failure, unspecified; E11.9 Type 2 diabetes mellitus without complications; E78.5 Hyperlipidemia, unspecified; J45.909 Unspecified asthma, uncomplicated; Z88.0 Allergy status to penicillin; Z91.041 Radiographic dye allergy status; Z88.8 Allergy status to other drugs, medicaments and biological substances; Z79.899 Other long term (current) drug therapy

== ENCOUNTER → 2019-11-05 | Outpatient (CLI) | payer MEDICARE | END | disposition home or self-care (01) | LOC: CT 12:39 | DX: G93.89 Other specified disorders of brain (principal); G44.209 Tension-type headache, unspecified, not intractable ==

== ENCOUNTER 2019-11-24 15:56 | Emergency (ER) | payer MEDICARE ==
[~2019-11-24] VITALS: Ht 180.3 cm; Wt 99.3 kg
[2019-11-24 16:42] LABS: BASO # 0.1 10*3/uL (0.0-0.1); BASO % 0.7 % (0.0-1.0); EOS # 0.4 10*3/uL (0.0-0.4); EOS % 2.7 % (1.0-4.0); HEMATOCRIT 44.9 % (42.0-52.0); LYMPH # 2.8 10*3/uL (1.3-4.4); LYMPH % 19.7 % (27.0-41.0); MEAN CELL VOLUME 84.2 fl (80.0-94.0); MEAN CORPUSCULAR HGB 27.4 pg (27.0-31.0); MEAN CORPUSCULAR HGB CONC 32.5 g/dl (33.0-37.0); MEAN PLATELET VOLUME 9.6 fl (9.6-12.3); MONO # 0.7 10*3/uL (0.1-1.0); MONO % 4.6 % (3.0-9.0); NEUT # 10.3 10*3/uL (2.3-7.9); NEUT % 71.5 % (47.0-73.0); PLATELET COUNT AUTOMATED 407 10*3/uL (130-400); RED BLOOD COUNT 5.33 10*6/uL (4.50-5.90); RED CELL DISTRI WIDTH 13.9 % (0-14.5); WHITE BLOOD COUNT 14.4 10*3/uL (4.8-10.8)
[2019-11-24 16:59] LABS: ALBUMIN 3.4 gm/dl (3.1-4.5); ALKALINE PHOSPHATASE 46 U/L (45-117); BUN 19 mg/dl (7-24); CHLORIDE 106 mmol/L (98-107); CREATININE 1.22 mg/dL (0.70-1.30); POTASSIUM 3.9 mmol/L (3.5-5.1); SGOT/AST 13 IU/L (3-35); SGPT/ALT 27 U/L (12-78); SODIUM 137 mmol/L (136-145); TOTAL PROTEIN 6.8 gm/dL (6.4-8.2)
[2019-11-24 17:46] VITALS: BP 96/53
== END 2019-11-24 19:14 | disposition home or self-care (01) ==
LOC: ED 15:56
PROVIDERS: Emergency Medicine
DX: R55 Syncope and collapse (principal); R42 Dizziness and giddiness; J45.909 Unspecified asthma, uncomplicated; E11.9 Type 2 diabetes mellitus without complications; I50.9 Heart failure, unspecified; I11.0 Hypertensive heart disease with heart failure; I25.2 Old myocardial infarction; F17.200 Nicotine dependence, unspecified, uncomplicated; Z88.0 Allergy status to penicillin; Z88.1 Allergy status to other antibiotic agents; Z88.6 Allergy status to analgesic agent; Z88.8 Allergy status to other drugs, medicaments and biological substances; Z79.899 Other long term (current) drug therapy

== ENCOUNTER → 2020-07-27 | Outpatient (CLI) | payer MEDICARE | END | disposition home or self-care (01) | LOC: RAD 13:02 | PROVIDERS: ATTEND Physician Assistant | DX: I25.10 Atherosclerotic heart disease of native coronary artery without angina pectoris (principal); I10 Essential (primary) hypertension; G62.9 Polyneuropathy, unspecified; I63.89 Other cerebral infarction ==

== ENCOUNTER 2020-11-07 09:50 | Emergency (ER) | payer MEDICARE ==
[~2020-11-07] VITALS: Ht 180.3 cm; Wt 102.5 kg
[2020-11-07 09:53] VITALS: BP 124/80
[2020-11-07 10:10] LABS: BASO # 0.1 10*3/uL (0.0-0.1); BASO % 1.4 % (0.0-1.0); EOS # 0.6 10*3/uL (0.0-0.4); EOS % 6.6 % (1.0-4.0); HEMATOCRIT 40.8 % (42.0-52.0); LYMPH # 2.7 10*3/uL (1.3-4.4); LYMPH % 31.7 % (27.0-41.0); MEAN CELL VOLUME 83.3 fl (80.0-94.0); MEAN CORPUSCULAR HGB 26.5 pg (27.0-31.0); MEAN CORPUSCULAR HGB CONC 31.9 g/dl (33.0-37.0); MEAN PLATELET VOLUME 9.9 fl (9.6-12.3); MONO # 0.6 10*3/uL (0.1-1.0); MONO % 7.4 % (3.0-9.0); NEUT # 4.5 10*3/uL (2.3-7.9); NEUT % 52.6 % (47.0-73.0); PLATELET COUNT AUTOMATED 371 10*3/uL (130-400); RED CELL DISTRI WIDTH 14.8 % (0-14.5); WHITE BLOOD COUNT 8.6 10*3/uL (4.8-10.8)
[2020-11-07 10:24] LABS: ALBUMIN 3.7 gm/dl (3.1-4.5); ALKALINE PHOSPHATASE 48 U/L (45-117); BUN 9 mg/dl (7-24); CHLORIDE 104 mmol/L (98-107); CREATININE 1.17 mg/dL (0.70-1.30); POTASSIUM 4.1 mmol/L (3.5-5.1); SGOT/AST 13 IU/L (3-35); SGPT/ALT 26 U/L (12-78); SODIUM 136 mmol/L (136-145); TOTAL PROTEIN 6.7 gm/dL (6.4-8.2)
[2020-11-07] MEDS ORDERED: PREDNISONE10 MG PO (12:26)
[2020-11-07] MEDS ORDERED: CYCLOBENZAPRINE10 MG PO (12:26)
== END 2020-11-07 12:31 | disposition home or self-care (01) ==
LOC: ED 09:50
PROVIDERS: Family Medicine
DX: S39.012A Strain of muscle, fascia and tendon of lower back, initial encounter (principal); Z88.0 Allergy status to penicillin; Z88.8 Allergy status to other drugs, medicaments and biological substances; Z79.899 Other long term (current) drug therapy; Z98.890 Other specified postprocedural states; Z95.810 Presence of automatic (implantable) cardiac defibrillator; X58.XXXA Exposure to other specified factors, initial encounter; Y93.89 Activity, other specified; Y92.89 Other specified places as the place of occurrence of the external cause; Y99.8 Other external cause status

== ENCOUNTER 2021-02-12 22:42 | Emergency (ER) | payer MEDICARE ==
[~2021-02-12] VITALS: Wt 112.9 kg
[~2021-02-12 22:42] MED LIST changes: +CYCLOBENZAPRINE10 MG PO
[2021-02-13 08:29] VITALS: BP 98/54
== END 2021-02-13 08:29 | disposition home or self-care (01) ==
LOC: ED 22:42
DX: M79.604 Pain in right leg (principal); M79.605 Pain in left leg; M79.89 Other specified soft tissue disorders; E11.40 Type 2 diabetes mellitus with diabetic neuropathy, unspecified; E11.51 Type 2 diabetes mellitus with diabetic peripheral angiopathy without gangrene; I25.10 Atherosclerotic heart disease of native coronary artery without angina pectoris; F31.9 Bipolar disorder, unspecified; I50.22 Chronic systolic (congestive) heart failure; I25.2 Old myocardial infarction; E03.9 Hypothyroidism, unspecified; E78.2 Mixed hyperlipidemia; E66.9 Obesity, unspecified; Z95.5 Presence of coronary angioplasty implant and graft; F17.200 Nicotine dependence, unspecified, uncomplicated; Z88.6 Allergy status to analgesic agent; Z88.0 Allergy status to penicillin; Z88.1 Allergy status to other antibiotic agents; Z91.041 Radiographic dye allergy status; Z88.8 Allergy status to other drugs, medicaments and biological substances; Z79.899 Other long term (current) drug therapy; Z79.4 Long term (current) use of insulin; Z86.73 Personal history of transient ischemic attack (TIA), and cerebral infarction without residual deficits; Z98.890 Other specified postprocedural states; Z90.89 Acquired absence of other organs

== ENCOUNTER → 2021-07-17 | Outpatient (CLI) | payer MEDICARE | END | disposition home or self-care (01) | LOC: CT 06-23 15:00 | PROVIDERS: ATTEND Physician Assistant | DX: I63.549 Cerebral infarction due to unspecified occlusion or stenosis of unspecified cerebellar artery (principal); R41.3 Other amnesia ==

== ENCOUNTER 2021-10-14 22:20 | Emergency (ER) | payer MEDICARE ==
[2021-10-14 22:30] VITALS: BP 118/57
[2021-10-14] MEDS ORDERED: NAPROSYN500 MG PO (23:11)
== END 2021-10-14 23:30 | disposition home or self-care (01) ==
LOC: ED 22:20
DX: S80.02XA Contusion of left knee, initial encounter (principal); Z98.890 Other specified postprocedural states; Z79.899 Other long term (current) drug therapy; Z88.6 Allergy status to analgesic agent; Z88.0 Allergy status to penicillin; Z88.5 Allergy status to narcotic agent; Z88.1 Allergy status to other antibiotic agents; W18.30XA Fall on same level, unspecified, initial encounter; Y93.89 Activity, other specified; Y92.89 Other specified places as the place of occurrence of the external cause; Y99.9 Unspecified external cause status

== ENCOUNTER → 2022-01-11 | Outpatient (CLI) | payer MEDICARE ==
[~2022-01-11] MED LIST changes: +NAPROSYN500 MG PO
== END | disposition home or self-care (01) ==
LOC: CARD 12-28 13:00
PROVIDERS: ATTEND Internal Medicine Cardiovascular Disease
DX: I21.9 Acute myocardial infarction, unspecified (principal); I34.0 Nonrheumatic mitral (valve) insufficiency

== ENCOUNTER 2022-04-24 18:08 | Emergency (ER) | payer MEDICARE ==
[~2022-04-24] VITALS: Wt 103.9 kg
[2022-04-24 18:19] VITALS: BP 127/68
[2022-04-24] MEDS ORDERED: CORTISPORIN SUS10 ML OT (19:26)
[2022-04-24] MEDS ORDERED: CLINDAMYCIN HC300 MG PO (19:26)
== END 2022-04-24 20:33 | disposition home or self-care (01) ==
LOC: ED 18:08
DX: T16.2XXA Foreign body in left ear, initial encounter (principal); Z88.8 Allergy status to other drugs, medicaments and biological substances; Z88.0 Allergy status to penicillin; Z88.1 Allergy status to other antibiotic agents; Z88.6 Allergy status to analgesic agent; Z79.899 Other long term (current) drug therapy; Z90.89 Acquired absence of other organs; Z98.890 Other specified postprocedural states; Z87.891 Personal history of nicotine dependence; X58.XXXA Exposure to other specified factors, initial encounter; Y93.89 Activity, other specified; Y92.89 Other specified places as the place of occurrence of the external cause; Y99.8 Other external cause status

== ENCOUNTER 2022-06-14 09:48 | Emergency (ER) | payer MEDICARE ==
[~2022-06-14] VITALS: Ht 180.3 cm; Wt 110.2 kg
[~2022-06-14 09:48] MED LIST changes: +CLINDAMYCIN HC300 MG PO; +CORTISPORIN SUS10 ML OT
[2022-06-14 11:55] LABS: BASO # 0.1 10*3/uL (0.0-0.1); BASO % 1.4 % (0.0-1.0); EOS # 0.3 10*3/uL (0.0-0.4); EOS % 2.5 % (1.0-4.0); HEMATOCRIT 38.3 % (42.0-52.0); LYMPH # 2.8 10*3/uL (1.3-4.4); MEAN CELL VOLUME 73.9 fl (80.0-94.0); MEAN CORPUSCULAR HGB 23.6 pg (27.0-31.0); MEAN CORPUSCULAR HGB CONC 31.9 g/dl (33.0-37.0); MEAN PLATELET VOLUME 8.5 fl (9.6-12.3); MONO # 0.7 10*3/uL (0.1-1.0); MONO % 6.9 % (3.0-9.0); NEUT # 6.2 10*3/uL (2.3-7.9); NEUT % 60.8 % (47.0-73.0); PLATELET COUNT AUTOMATED 506 10*3/uL (130-400); RED BLOOD COUNT 5.18 10*6/uL (4.50-5.90); RED CELL DISTRI WIDTH 17.1 % (0-14.5); WHITE BLOOD COUNT 10.1 10*3/uL (4.8-10.8)
[2022-06-14 12:11] LABS: ALKALINE PHOSPHATASE 37 U/L (46-116); CHLORIDE 96 mmol/L (98-107); POTASSIUM 4.2 mmol/L (3.4-5.1); SGPT/ALT 12 U/L (10-49); TOTAL PROTEIN 6.1 gm/dL (6.0-8.0)
[2022-06-14 12:13] LABS: BUN < 5 mg/dl (9-23)
[2022-06-14 13:00] VITALS: BP 101/66
== END 2022-06-14 13:15 | disposition left against medical advice (07) ==
LOC: ED 09:48
PROVIDERS: Emergency Medicine
DX: G45.9 Transient cerebral ischemic attack, unspecified (principal); J45.909 Unspecified asthma, uncomplicated; E11.9 Type 2 diabetes mellitus without complications; I50.9 Heart failure, unspecified; I11.0 Hypertensive heart disease with heart failure; I25.2 Old myocardial infarction; Z88.0 Allergy status to penicillin; Z88.1 Allergy status to other antibiotic agents; Z88.8 Allergy status to other drugs, medicaments and biological substances; Z79.899 Other long term (current) drug therapy; Z90.89 Acquired absence of other organs; Z98.890 Other specified postprocedural states; Z87.891 Personal history of nicotine dependence

== ENCOUNTER → 2023-01-30 | Outpatient (CLI) | payer MEDICARE | END | disposition home or self-care (01) | LOC: CT 00:59 | PROVIDERS: ATTEND Physician Assistant | DX: Z12.2 Encounter for screening for malignant neoplasm of respiratory organs (principal); J43.9 Emphysema, unspecified; I25.10 Atherosclerotic heart disease of native coronary artery without angina pectoris; F17.210 Nicotine dependence, cigarettes, uncomplicated; I89.8 Other specified noninfective disorders of lymphatic vessels and lymph nodes ==

== ENCOUNTER 2023-12-12 18:40 | Emergency (ER) | payer MEDICARE ==
[~2023-12-12] VITALS: Ht 180.3 cm; Wt 89.8 kg
[2023-12-12 18:49] VITALS: BP 151/86
== END 2023-12-12 20:25 | disposition home or self-care (01) ==
LOC: ED 18:40
DX: M65.352 Trigger finger, left little finger (principal); J45.909 Unspecified asthma, uncomplicated; E11.9 Type 2 diabetes mellitus without complications; I11.0 Hypertensive heart disease with heart failure; I50.9 Heart failure, unspecified; I25.2 Old myocardial infarction; F17.200 Nicotine dependence, unspecified, uncomplicated; Z88.6 Allergy status to analgesic agent; Z88.0 Allergy status to penicillin; Z88.1 Allergy status to other antibiotic agents; Z91.041 Radiographic dye allergy status; Z88.5 Allergy status to narcotic agent; Z88.8 Allergy status to other drugs, medicaments and biological substances; Z90.89 Acquired absence of other organs; Z95.5 Presence of coronary angioplasty implant and graft; Z98.890 Other specified postprocedural states

== ENCOUNTER 2024-06-21 15:01 | Emergency (ER) | payer MEDICARE ==
[~2024-06-21] VITALS: Wt 103.4 kg
[2024-06-21] MEDS ORDERED: Ondansetron Hydrochloride 4 MG/2 ML VIAL IV ONE (15:05)
[2024-06-21] MEDS ORDERED: MORPHINE Sulfate 2 MG/ML SYR IV ONE (15:05)
[2024-06-21 15:13] LABS: BASO # 0.1 10*3/uL (0.0-0.1); EOS # 0.2 10*3/uL (0.0-0.4); HEMATOCRIT 48.1 % (42.0-52.0); MEAN CELL VOLUME 82.2 fl (80.0-94.0); MEAN CORPUSCULAR HGB 27.9 pg (27.0-31.0); MEAN CORPUSCULAR HGB CONC 33.9 g/dl (33.0-37.0); MEAN PLATELET VOLUME 9.3 fl (9.6-12.3); MONO # 0.6 10*3/uL (0.1-1.0); MONO % 6.5 % (3.0-9.0); NEUT # 6.3 10*3/uL (2.3-7.9); NEUT % 69.1 % (47.0-73.0); PLATELET COUNT AUTOMATED 483 10*3/uL (130-400); RED BLOOD COUNT 5.85 10*6/uL (4.50-5.90); RED CELL DISTRI WIDTH 13.9 % (0-14.5); WHITE BLOOD COUNT 9.1 10*3/uL (4.8-10.8)
[2024-06-21 15:28] LABS: BUN 9 mg/dl (9-23); CHLORIDE 96 mmol/L (98-107); POTASSIUM 4.1 mmol/L (3.4-5.1)
[2024-06-21] MEDS ORDERED: LEVOTHYROXINE25 MCG PO (15:39)
[2024-06-21] MEDS ORDERED: PANTOPRAZOLE SO40 MG PO (15:39)
[2024-06-21] MEDS ORDERED: FENOFIBRATE MI200 MG PO (15:39)
[2024-06-21] MEDS ORDERED: INDERAL XL80 MG PO (15:40)
[2024-06-21] MEDS ORDERED: LASIX20 MG PO (15:40)
[2024-06-21] MEDS ORDERED: XARE20MG PO (15:41)
[2024-06-21] MEDS ORDERED: DIGITEK250 MCG PO (15:41)
[2024-06-21] MEDS ORDERED: ISOSORBIDE DINI30 MG PO (15:41)
[2024-06-21] MEDS ORDERED: JARDIANCE25 MG PO (15:42)
[2024-06-21] MEDS ORDERED: ALDACTONE25 M1 PO (15:42)
[2024-06-21] MEDS ORDERED: CORLANOR7.5 MG PO (15:43)
[2024-06-21] MEDS ORDERED: QULIPTA60 MG PO (15:44)
[2024-06-21] MEDS ORDERED: Ondansetron4 MG PO (15:45)
[2024-06-21] MEDS ORDERED: Clopidogrel75 MG PO (15:46)
[2024-06-21] MEDS ORDERED: MAGNESIUM250 M1 PO (15:46)
[2024-06-21] MEDS ORDERED: LYVISPAH10 M1 PO (15:47)
[2024-06-21] MEDS ORDERED: GEODON40 MG PO (15:47)
[2024-06-21] MEDS ORDERED: TEGRETOL-XR 10100 MG PO (15:47)
[2024-06-21] MEDS ORDERED: CARBATROL300 MG PO (15:48)
[2024-06-21] MEDS ORDERED: Imdur SA60 MG PO (15:48)
[2024-06-21] MEDS ORDERED: ENTRESTO 24 MG1 EACH PO (15:49)
[2024-06-21] MEDS ORDERED: VASCEPA1 G1 PO (15:49)
[2024-06-21] MEDS ORDERED: ASPIRIN 325 MG TAB PO ONE (16:00)
[2024-06-21] MEDS ORDERED: HEPARIN SODIUM 250 ML IV SCH (16:10)
[2024-06-21] MEDS ORDERED: MORPHINE Sulfate 2 MG/ML SYR IV PRN (19:50)
[2024-06-21] MEDS ORDERED: Ondansetron Hydrochloride 4 MG TAB PO PRN (20:00)
[2024-06-21] MEDS ORDERED: BACLOFEN 10 MG TAB PO PRN (20:05)
[2024-06-21] MEDS ORDERED: DEXTROSE 10 % IN WATER 250 ML IV PRN (20:25)
[2024-06-21] MEDS ORDERED: Ziprasidone Hydrochloride 20 MG CAP PO SCH (20:35)
[2024-06-21] MEDS ORDERED: carBAMazepine XR 100 MG TAB PO SCH (22:00)
[2024-06-21] MEDS ORDERED: SACUBITRIL/VALSARTAN 97 MG-103 MG TABLET PO SCH (22:00)
[2024-06-21] MEDS ORDERED: INSULIN LISPRO 1 UNIT/0.01 ML SQ SCH (22:00)
[2024-06-21] MEDS ORDERED: Propranolol Hydrochloride 80 MG CAP (LA) PO SCH (22:00)
[2024-06-22] MEDS ORDERED: Levothyroxine Sodium 200 MCG TAB PO SCH (06:00)
[2024-06-22 07:30] VITALS: BP 103/63
[2024-06-22] MEDS ORDERED: Pantoprazole Sodium 40 MG TAB PO SCH (07:30)
[2024-06-22] MEDS ORDERED: Clopidogrel Hydrogen Sulfate 75 MG TAB PO SCH (10:00)
[2024-06-22] MEDS ORDERED: FUROSEMIDE 20 MG TAB PO SCH (10:00)
[2024-06-22] MEDS ORDERED: Ziprasidone Hydrochloride 20 MG CAP PO SCH (10:00)
[2024-06-22] MEDS ORDERED: FENOFIBRATE 48 MG TAB PO SCH (10:00)
[2024-06-22] MEDS ORDERED: QULIPTA 60 MG PO SCH (10:00)
[2024-06-22] MEDS ORDERED: ASPIRIN ENTERIC COATED 81 MG TAB PO SCH (10:00)
[2024-06-22] MEDS ORDERED: CORLANOR PO SCH (10:00)
[2024-06-22] MEDS ORDERED: ATORVASTATIN CALCIUM 40 MG TABLET PO SCH (10:00)
[2024-06-22] MEDS ORDERED: EMPAGLIFLOZIN 25 MG TABLET PO SCH (10:00)
[2024-06-22] MEDS ORDERED: SACUBITRIL/VALSARTAN 24 MG-26 MG TABLET PO SCH (10:00)
[2024-06-22] MEDS ORDERED: SPIRONOLACTONE 25 MG TAB PO SCH (10:00)
[2024-06-22] MEDS ORDERED: MAGNESIUM 250 MG TAB PO SCH (10:00)
[2024-06-22] MEDS ORDERED: DIGOXIN 125 MCG TAB PO SCH (14:00)
[2024-06-22] MEDS ORDERED: carBAMazepine XR 100 MG TAB PO SCH (14:00)
== END 2024-06-22 08:12 | disposition short-term general hospital (02) ==
LOC: ED 15:01
PROVIDERS: Emergency Medicine
DX: I21.4 Non-ST elevation (NSTEMI) myocardial infarction (principal); I25.10 Atherosclerotic heart disease of native coronary artery without angina pectoris; E78.5 Hyperlipidemia, unspecified; F31.9 Bipolar disorder, unspecified; I25.2 Old myocardial infarction; E03.9 Hypothyroidism, unspecified; D75.839 Thrombocytosis, unspecified; E87.1 Hypo-osmolality and hyponatremia; E11.65 Type 2 diabetes mellitus with hyperglycemia; G47.00 Insomnia, unspecified; E11.40 Type 2 diabetes mellitus with diabetic neuropathy, unspecified; I11.0 Hypertensive heart disease with heart failure; I50.9 Heart failure, unspecified; F17.200 Nicotine dependence, unspecified, uncomplicated; Z88.6 Allergy status to analgesic agent; Z88.0 Allergy status to penicillin; Z88.1 Allergy status to other antibiotic agents; Z88.5 Allergy status to narcotic agent; Z88.8 Allergy status to other drugs, medicaments and biological substances; Z91.041 Radiographic dye allergy status; Z95.5 Presence of coronary angioplasty implant and graft; Z90.89 Acquired absence of other organs; Z98.890 Other specified postprocedural states

== ENCOUNTER 2024-10-03 07:03 | Emergency (ER) | payer MEDICARE ==
[~2024-10-03] VITALS: Ht 180.3 cm; Wt 102.1 kg
[~2024-10-03 07:03] MED LIST changes: +ALDACTONE25 M1 PO; +CARBATROL300 MG PO; +CORLANOR7.5 MG PO; +Clopidogrel75 MG PO; +DIGITEK250 MCG PO; +ENTRESTO 24 MG1 EACH PO; +FENOFIBRATE MI200 MG PO; +GEODON40 MG PO; +INDERAL XL80 MG PO; +ISOSORBIDE DINI30 MG PO; +Imdur SA60 MG PO; +JARDIANCE25 MG PO; +LEVOTHYROXINE25 MCG PO; +LYVISPAH10 M1 PO; +MAGNESIUM250 M1 PO; +Ondansetron4 MG PO; +PANTOPRAZOLE SO40 MG PO; +QULIPTA60 MG PO; +TEGRETOL-XR 10100 MG PO; +VASCEPA1 G1 PO; +XARE20MG PO
[2024-10-03 07:06] VITALS: BP 103/53
[2024-10-03] MEDS ORDERED: diazePAM 5 MG TAB PO ONE (07:15)
[2024-10-03] MEDS ORDERED: Meclizine Hydrochloride 25 MG TAB PO ONE (07:15)
[2024-10-03 07:29] LABS: BASO # 0.1 10*3/uL (0.0-0.1); BASO % 1.3 % (0.0-1.0); EOS # 0.3 10*3/uL (0.0-0.4); EOS % 3.7 % (1.0-4.0); HEMATOCRIT 48.3 % (42.0-52.0); MEAN CELL VOLUME 83.7 fl (80.0-94.0); MEAN CORPUSCULAR HGB 27.7 pg (27.0-31.0); MEAN CORPUSCULAR HGB CONC 33.1 g/dl (33.0-37.0); MEAN PLATELET VOLUME 9.1 fl (9.6-12.3); MONO # 0.6 10*3/uL (0.1-1.0); MONO % 6.7 % (3.0-9.0); NEUT # 6.1 10*3/uL (2.3-7.9); NEUT % 71.4 % (47.0-73.0); PLATELET COUNT AUTOMATED 330 10*3/uL (130-400); RED BLOOD COUNT 5.77 10*6/uL (4.50-5.90); RED CELL DISTRI WIDTH 12.8 % (0-14.5); WHITE BLOOD COUNT 8.5 10*3/uL (4.8-10.8)
[2024-10-03 07:49] LABS: BUN 11 mg/dl (9-23); CHLORIDE 95 mmol/L (98-107); POTASSIUM 4.2 mmol/L (3.4-5.1)
[2024-10-03] MEDS ORDERED: INSULIN REGULAR, HUMAN 1 UNIT/0.01 ML SC ONE (08:30)
== END 2024-10-03 10:05 | disposition home or self-care (01) ==
LOC: ED 07:03
PROVIDERS: Emergency Medicine
DX: R42 Dizziness and giddiness (principal); E11.65 Type 2 diabetes mellitus with hyperglycemia; I11.0 Hypertensive heart disease with heart failure; I50.9 Heart failure, unspecified; E78.5 Hyperlipidemia, unspecified; I25.10 Atherosclerotic heart disease of native coronary artery without angina pectoris; F17.200 Nicotine dependence, unspecified, uncomplicated; Z88.6 Allergy status to analgesic agent; Z88.0 Allergy status to penicillin; Z88.1 Allergy status to other antibiotic agents; Z88.8 Allergy status to other drugs, medicaments and biological substances; Z91.041 Radiographic dye allergy status; Z79.899 Other long term (current) drug therapy; Z79.82 Long term (current) use of aspirin; Z95.5 Presence of coronary angioplasty implant and graft; Z98.890 Other specified postprocedural states; Z90.89 Acquired absence of other organs